=== PATIENT | male | born 1980 | race Caucasian/White ===

== ENCOUNTER 2021-08-24 14:45 | Emergency (ER) | payer OTHER ==
[~2021-08-24] VITALS: Ht 188 cm; Wt 81.6 kg
[2021-08-24 15:50] VITALS: BP_SYST 137
[2021-08-24] MEDS ORDERED: NAPR-688 PO (16:10)
[2021-08-24] MEDS ORDERED: IBUPROFEN 600 MG TABLET PO ONE (16:15)
[2021-08-24 16:56] VITALS: BP_SYST 137
== END 2021-08-24 16:56 | disposition home or self-care (01) ==
LOC: SED 14:45
DX: U07.1 COVID-19 (principal); Z79.899 Other long term (current) drug therapy
CPT/HCPCS: 99283; C9803; U0003